=== PATIENT | male | born 1975 | race Asian ===

== ENCOUNTER 2016-11-15 14:59 | Emergency (ER) | payer OTHER ==
[~2016-11-15] VITALS: Ht 175.3 cm; Wt 65.8 kg
[~2016-11-15 14:59] MED LIST: PROTONIX40 M3 PO; ZOFRAN ODT4 M1 SL
--- NOTE | 2016-11-15 15:11 | ED GI/GU/ABDOMINAL COMPLAINT ---
History of Present Illness General Chief Complaint: Abdominal Pain/Flank Pain Stated Complaint: L FLANK PAIN Source: patient, family, old records Exam Limitations: no limitations Vital Signs & Intake/Output Vital Signs & Intake/Output Vital Signs Date Time Temp Pulse Resp B/P B/P Pulse O2 O2 Flow FiO2 Mean Ox Delivery Rate 11/15 1607 98.2 90 16 112/77 94 Room Air 11/15 1504 97.9 91 16 117/82 98 Room Air Allergies Coded Allergies: No Known Allergies (02/23/16) Reconcile Medications Amoxicillin 875 MG TABLET 1 TAB PO BID SINUS INFECTION (Reported) Fluticasone Propionate 50 MCG/ACTUATION SPRAY.SUSP 2 SPRAY NASB DAILY ALLERGIES (Reported) Ketorolac Tromethamine 10 MG TABLET 1 TAB PO TID PRN PAIN Ondansetron (Zofran Odt) 4 MG TAB.RAPDIS 1 TAB SL TID PRN NAUSEA Oxycodone HCl/Acetaminophen (Percocet 5-325 MG Tablet) 5 MG-325 MG TABLET 1 TAB PO BID PAIN Pantoprazole Sodium (Protonix) 40 MG TABLET.DR 1 TAB PO DAILY reflux Triage Note: PT C/O LEFT FLANK PAIN STATES IT WAS SEVERE. PT WENT TO URGENT CARE AND WAS GIVEN HIM AN INJECTIONS OF TORADOL AND WAS TOLD TO COME TO ED FOR US TO R/O KIDNEY STONE BECAUSE HE HAD BLOOD IN HIS URINE. PT HAS SUBSIDED AT THIS TIME Triage Nurses Notes Reviewed? yes Onset: Abrupt Duration: better, constant, changing over time Timing: single episode today Quality/Severity: aching, sharpness, severe, stabbing Severity Numbers: 10 Location: left flank Radiation: no radiation Activities at Onset: none Prior Abdominal Problems: none No Modifying Factors: none Associated Symptoms: nausea/vomiting HPI: 11-year-old male presents to the ER for evaluation sent in by an urgent care for evaluation. He states he had sudden onset of left flank pain sharp stabbing 10 out of 10 nonradiating that began approximately 5 hours ago. He denies similar episodes in the past. He states that he was told in urgent care that he had blood in his urine and was sent here to rule out a kidney stone. No history of abdominal surgeries in the past. The patient was given a shot of Toradol at the urgent care and reports his pain has since resolved. He reports 2 episodes of vomiting earlier prior to the pain. He denies nausea at this time no black or bloody stools no diarrhea and no chest pain. He denies any abdominal pain there are no other modifying factors or associated symptoms otherwise. No history of kidney stones in the past (BIANKA RUFF) Past History Travel History Traveled to [place] past 21 day No Medical History Any Pertinent Medical History? see below for history Neurological: NONE EENT: NONE Cardiovascular: NONE Respiratory: NONE Gastrointestinal: GERD Hepatic: NONE Renal: NONE Musculoskeletal: NONE Psychiatric: NONE Endocrine: NONE Surgical History Surgical History: non-contributory Psychosocial History What is your primary language Romanian Tobacco Use: Never used ETOH Use: denies use Illicit Drug Use: denies illicit drug use Family History Hx Contributory? No (BIANKA RUFF) Review of Systems Review of Systems Constitutional: Reports: see HPI. All Other Systems: Reviewed and Negative Comments Review of systems: See HPI, All other systems negative. Constitutional, no chills no fever, no malaise HEENT: No visual changes no sore throat no congestion, no ear pain Cardiovascular: No chest pain , no palpitation Skin: no rashes, no change in skin Respiratory: No dyspnea no cough no sputum GI: No nausea no vomiting, no diarrhea, no bloating/constipation : No dysuria No hematuria, no frequency, no discharge Muscle skeletal: No joint pain, no joint swelling, no back pain, no neck pain, Neurologic: No numbness no headache Psych: No stress Heme/endocrine: No bruising no bleeding Immunology: No lymphadenopathy (BIANKA RUFF) Physical Exam Physical Exam General Appearance: well developed/nourished, no apparent distress, alert Gastrointestinal: normal bowel sounds, soft Comments: Well-developed well-nourished person in no acute distress HEENT: Normal EENT exam; PERRL, EOMI. HEAD is atraumatic. moist mucous membranes. Neck: Supple, normal range of motion Back: Nontender, no CVA tenderness. Full range of motion Cardiovascular: Regular rate and rhythms no murmurs rubs Respiratory: try. No respiratory distress. Patient speaking in full complete sentences. Breath sounds clear to auscultation bilaterally: NO W/R/R Abdomen: Soft, nontender nondistended, no appreciable organomegaly. Normal bowel sounds. No rebound/guarding, No appreciable enlargement of the abdominal aorta, Extremity: No edema, full range of motion of extremities Neuro: Alert oriented x3, motor sensory normal. There were no obvious focal neurologic abnormalities. Skin: No appreciable rash on exposed skin, skin is warm and dry. Psych: Mood and affect is normal, memory and judgment is normal. Core Measures ACS in differential dx? No Severe Sepsis Present: No Septic Shock Present: No (BIANKA RUFF) Progress Differential Diagnosis: AAA, biliary colic, bowel obstruction, colon cancer, cholecystitis, inflamm bowel dis, pancreatitis, ureterolithiasis, UTI/pyelo Plan of Care: Orders Procedure Date/time Status CBC WITHOUT DIFFERENTIAL 11/15 1511 Complete BASIC METABOLIC PANEL 11/15 151 Complete Laboratory Tests 11/15/16 1520: Anion Gap 14, Estimated GFR > 60, BUN/Creatinine Ratio 18.6, Glucose 108 H, Calcium 9.2, CBC w Diff NO MAN DIFF REQ, RBC 5.71, MCV 86.2, MCH 29.3, RDW 13.6, MPV 7.8, Gran % 87.1 H, Lymphocytes % 8.3 L, Monocytes % 4.2, Eosinophils % 0.1, Basophils % 0.3, Absolute Granulocytes 7.8 H, Absolute Lymphocytes 0.7 L, Absolute Monocytes 0.4, Absolute Eosinophils 0, Absolute Basophils 0, PUBS MCHC 34.0 11/15/16 1503: Urine Color Cancelled, Urine Clarity Cancelled, Urine pH Cancelled, Ur Specific [place] Cancelled, Urine Protein Cancelled, Urine Ketones Cancelled, Urine Nitrite Cancelled, Urine Bilirubin Cancelled, Urine Urobilinogen Cancelled, Ur Leukocyte Esterase Cancelled, Ur Microscopic Cancelled, Urine Hemoglobin Cancelled, Urine Glucose Cancelled labs ordered, old records including pts ua from urgent care reviewed, ct ordered. pt denies any pain at this time or nausea. Results of the urinalysis showed negative leukocytes and negative nitrates negative urobilinogen large protein and large hematuria negative glucose case d/w dr carlson 1545 PT resting comfortably at this time. declining anything for pain, pending ct results (BIANKA RUFF) Diagnostic Imaging: Viewed by Me: CT Scan. Discussed w/RAD: CT Scan. Radiology Impression: PATIENT: RENATA CAPELLAN PRESENT AGE: 41 PATIENT ACCOUNT NO: [id number] : 77 LOCATION: [facility] ORDERING PHYSICIAN: BIANKA VALLE SERVICE DATE: 11/15/16-1511 EXAM TYPE: CAT - CT ABD & PELVIS W/O IV CONTRAS EXAMINATION: CT ABDOMEN AND PELVIS WITHOUT CONTRAST CLINICAL INFORMATION: Left flank pain. Hematuria. COMPARISON: None TECHNIQUE: Multidetector volumetric imaging was performed from the superior aspect of the liver through the pubic symphysis. Sagittal and coronal reformatted images were obtained on the technologist's workstation. DLP: 290.88 mGy-cm FINDINGS: LUNG BASES: The visualized lung bases are unremarkable. LIVER, GALLBLADDER, AND BILIARY TREE: 1.5 cm rounded hypodensity central liver in segment 4. Nonspecific. Statistically likely hepatic cyst. No intrahepatic bile duct dilatation. Right lobe liver measures 15.6 cm superior inferior. The gallbladder is unremarkable with no evidence of radiopaque gallstones, gallbladder wall thickening, or obvious pericholecystic inflammatory changes. PANCREAS: Unremarkable. SPLEEN: Unremarkable. Spleen measures 11 cm superior inferior. ADRENAL GLANDS: Unremarkable. KIDNEYS AND URETERS: There is a 3 mm stone in the proximal left ureter just distal to the ureteropelvic junction. There is mild hydronephrosis with mild dilatation of renal pelvis and calyces. No additional stone in the kidney. The right kidney and ureter are normal. BLADDER: Unremarkable. GASTROINTESTINAL TRACT: The small and large bowel are unremarkable. The appendix is unremarkable. ABDOMINAL WALL: No significant hernia is appreciated. LYMPH NODES: Normal. VASCULAR: Unremarkable. PELVIC VISCERA: Unremarkable. OSSEOUS STRUCTURES: Unremarkable. IMPRESSION: Mild hydronephrosis of the left kidney due to an obstructing 3 mm stone in the proximal left ureter. DICTATED BY: BRADLEY LAND MD DATE/TIME DICTATED:11/15/161545 HEAD AND NECK SURGEON:SPENCER DATE/TIME TRANSCRIBED:11/15/161545 CONFIDENTIAL, DO NOT COPY WITHOUT APPROPRIATE AUTHORIZATION. <Electronically signed in Other Vendor System> SIGNED BY: BRADLEY LAND MD 11/15/16 1553 Initial ED EKG: none (HERNAN VALLE,BIANKA) Departure Departure Time of Disposition: 1604 Disposition: HOME OR SELF CARE Condition: Stable Clinical Impression Primary Impression: Ureterolithiasis Referrals: DANYA MUNOZ,FRANCES MONTERROSO MD,ELOISE López Additional Instructions: FOLLOW UP WITH UROLOGIST DR HAGAN ON THURSDAY. ZOFRAN IF NEEDED IF YOU DEVELOP NAUSEA,TORADOL NEEDED. PERCOCET FOR BREAKTHROUGH PAIN- THIS IS A NARCOTIC AND HIGHLY ADDICTIVE. THIS WILL MAKE YOU DROWSY. NO DRIVING OR DRINKING ALCOHOL WHILE TAKING. THESE WERE SENT TO [facility]. Departure Forms: Customer Survey General Discharge Information Prescriptions: Current Visit Scripts Oxycodone HCl/Acetaminophen (Percocet 5-325 MG Tablet) 1 TAB PO BID #10 TAB Ondansetron (Zofran Odt) 1 TAB SL TID PRN NAUSEA #10 TAB Ketorolac Tromethamine 1 TAB PO TID PRN PAIN #15 TAB (BIANKA RUFF) PA/KITCHEN CLERK Co-Sign Statement Statement: ED Attending supervision documentation- [] I saw and evaluated the patient. I have also reviewed all the pertinent lab results and diagnostic results. I agree with the findings and the plan of care as documented in the PA's/KITCHEN CLERK's documentation. [X] I have reviewed the ED Record and agree with the PA's/KITCHEN CLERK's documentation. [] Additions or exceptions (if any) to the PAs/KITCHEN CLERK's note and plan are summarized below: [] (ALF MUNOZ,HOMAR López)
[2016-11-15 15:28] LABS: ABSOLUTE BASOPHIL COUNT 0 /CUMM (0.0-0.2); ABSOLUTE EOSINOPHIL COUNT 0 /CUMM (0.0-0.7); ABSOLUTE GRANULOCYTE CT 7.8 /CUMM (1.4-6.5); ABSOLUTE LYMPH COUNT 0.7 /CUMM (1.2-3.4); ABSOLUTE MONOCYTE COUNT 0.4 /CUMM (0.10-0.60); BASOPHIL % 0.3 % (0.0-2.0); EOSINOPHIL % 0.1 % (0-5); HEMATOCRIT 49.3 % (42-52); MEAN CORPUSCULAR HGB 29.3 PG (27.0-31.0); MEAN CORPUSCULAR VOLUME 86.2 FL (80.0-94.0); MEAN PLATELET VOLUME 7.8 FL (7.4-10.4); PLATELET COUNT 210 /CUMM (130-400); RBC DISTRIBUTION WIDTH 13.6 % (11.5-14.5); RED BLOOD CELL CT 5.71 /CUMM (4.70-6.10)
[2016-11-15 15:40] LABS: GRANULOCYTE % 87.1 % (42.2-75.2)
--- NOTE | 2016-11-15 15:55 | CT SCAN REPORT ---
EXAMINATION: CT ABDOMEN AND PELVIS WITHOUT CONTRAST CLINICAL INFORMATION: Left flank pain. Hematuria. COMPARISON: None TECHNIQUE: Multidetector volumetric imaging was performed from the superior aspect of the liver through the pubic symphysis. Sagittal and coronal reformatted images were obtained on the technologist's workstation. DLP: 290.88 mGy-cm FINDINGS: LUNG BASES: The visualized lung bases are unremarkable. LIVER, GALLBLADDER, AND BILIARY TREE: 1.5 cm rounded hypodensity central liver in segment 4. Nonspecific. Statistically likely hepatic cyst. No intrahepatic bile duct dilatation. Right lobe liver measures 15.6 cm superior inferior. The gallbladder is unremarkable with no evidence of radiopaque gallstones, gallbladder wall thickening, or obvious pericholecystic inflammatory changes. PANCREAS: Unremarkable. SPLEEN: Unremarkable. Spleen measures 11 cm superior inferior. ADRENAL GLANDS: Unremarkable. KIDNEYS AND URETERS: There is a 3 mm stone in the proximal left ureter just distal to the ureteropelvic junction. There is mild hydronephrosis with mild dilatation of renal pelvis and calyces. No additional stone in the kidney. The right kidney and ureter are normal. BLADDER: Unremarkable. GASTROINTESTINAL TRACT: The small and large bowel are unremarkable. The appendix is unremarkable. ABDOMINAL WALL: No significant hernia is appreciated. LYMPH NODES: Normal. VASCULAR: Unremarkable. PELVIC VISCERA: Unremarkable. OSSEOUS STRUCTURES: Unremarkable. IMPRESSION: Mild hydronephrosis of the left kidney due to an obstructing 3 mm stone in the proximal left ureter.
[2016-11-15 16:07] VITALS: BP 112/77
[2016-11-15] MEDS ORDERED: KETOROLAC TROME10 M1 PO (16:07)
[2016-11-15] MEDS ORDERED: ZOFRAN ODT4 M1 SL (16:07)
[2016-11-15] MEDS ORDERED: PERCOCET 5-3251 EACH PO (16:07)
[2016-11-15] MEDS ORDERED: AMOXICILLIN875 M1 PO (16:14)
[2016-11-15] MEDS ORDERED: FLUTICASONE PRO16 GM NASB (16:14)
== END 2016-11-15 16:15 ==
LOC: ERH 14:59
PROVIDERS: Physician Assistant Medical
DX: N20.1 Calculus of ureter (principal)
CPT/HCPCS: 74176